=== PATIENT | male | born 2005 | race Caucasian/White ===

== ENCOUNTER → 2024-06-20 13:57 | Outpatient (REF) | payer BC, SELFPAY | LOC: HWRAD 13:57 | PROVIDERS: ATTENDING PHYSICIAN Family Medicine | DX: R53.83 Other fatigue (principal); R51.9 Headache, unspecified | CPT/HCPCS: 70450 ==

== ENCOUNTER → 2024-12-09 20:15 | Outpatient (REF) | payer BC, SELFPAY | LOC: MRI 3T 20:15 | PROVIDERS: ATTENDING PHYSICIAN Internal Medicine Geriatric Medicine; FAMILY PHYSICIAN Family Medicine | DX: E27.49 Other adrenocortical insufficiency (principal) | CPT/HCPCS: 70553; A9575 ==